=== PATIENT | female | born 1935 | race Caucasian/White ===

== ENCOUNTER 2016-07-09 23:52 | Inpatient (IN) ==
[2016-07-10] MEDS ORDERED: *HR* Promethazine 25 MG/ML VIAL ONE (02:04)
[2016-07-10] MEDS ORDERED: *HR* Promethazine 25 MG/ML VIAL IVP PRN (02:14)
[2016-07-10] MEDS ORDERED: Naloxone 0.4 MG/ML INJ IVP PRN (02:14)
[2016-07-10] MEDS ORDERED: *HR* Morphine 2 MG/ML SYRINGE IVP PRN (02:14)
--- NOTE | 2016-07-10 02:23 | Internal Med History&Physical ---
Date of Encounter: 07/10/16 Time of Encounter: 01:30 Assessment and Plan (1) A-fib Current visit: Yes Status: Acute Heart rate is well-controlled. Cardiac monitoring shows pacing rhythm with a heart rate 70. Will hold Eliquis for possible surgical intervention. (last dose was 07/09 morning). Qualifiers: Atrial fibrillation type: chronic Qualified Code(s): I48.2 - Chronic atrial fibrillation (2) SBO (small bowel obstruction) Current visit: No Status: Acute CT abdomen shows small bowel obstruction, patient still can pass gas. Surgical consult was informed. - Continue nothing by mouth, IV fluid to avoid dehydration. - Symptomatic and supportive treatment. - Closely monitoring considering patient's high age. - Surgical consult. (3) DVT prophylaxis Current visit: Yes Status: Acute Eliquis is on hold for possible surgical intervention. EPCD Internal Medicine - H&P: HPI Chief complaint: Abdominal pain Admitted From: Home Plans for Post Hospital Care: Home History of present illness: Ms. Das is a 81 year old female with history of A. fib on pacemaker and Eliquis presented to [place] emergency room for abdominal pain. Patient said the pain onset suddenly at 5 PM when she is eating. Pain is a cramping, 10 out of 10, patient has nausea and vomiting. Patient denies chest pain or shortness of breath. She has no fever. She had a bowel movement in the morning. She can pass gas. CT abdomen shows small bowel obstruction. Surgery on-call Dr. Perrin was counseled by [facility], instructed conservative treatment and he will see patient in a.m.. Patient transferred to [facility] for further management. Past Med Surg Social Fam HX - Past Medical History Medical history: arthritis, atrial fibrillation, hyperlipidemia, hypertension, other (Irritable bowel syndrome) Psychiatric history: depression - Past Surgical History Surgical History: cholecystectomy, hysterectomy - Social History Smoking Status: Never smoker Smokeless Tobacco Status: No Alcohol use: none Drug use: none Internal Medicine - H&P: Meds Apixaban [Eliquis] 2.5 mg PO BID 07/09/16 [History] Buprenorphine HCl [Belbuca] 150 mcg BC DAILY 07/09/16 [History] Furosemide [Lasix] 20 mg PO DAILY 07/09/16 [History] Ibguard 1 PO TID 07/09/16 [History] Potassium Chloride [Klor-Con M15] 1 PO BID 07/09/16 [History] RX: Amlodipine Besylate 1 mg PO 07/09/16 [History] RX: Carvedilol 3.125 mg PO BID 07/09/16 [History] RX: PARoxetine HCl [Paroxetine HCl] 10 mg PO 07/09/16 [History] Allergies No Known Allergies Allergy (Verified 03/03/16 14:13) All Systems PM: A 10-system review of systems was performed and is negative for pertinent findings except as documented above in the HPI. - Head Head exam: Present: atraumatic, normocephalic - Eye Eye exam: Present: PERRL, conjuntiva pink, sclera anicteric Pupils: Present: PERRL - Neck Neck exam general surgery: Present: supple, trachea midline. Absent: lymphadenopathy - Respiratory Respiratory exam: Present: CTAB. Absent: accessory muscle use, rales, rhonchi, wheezes - Cardiovascular Cardiovascular exam: Present: RRR, +S1, +S2. Absent: diastolic murmur, gallop, rubs, systolic murmur - GI/Abdominal GI/Abdominal exam: Present: normal bowel sounds, soft, tenderness (Tenderness on right upper quadrant without guarding or rebound), no peritoneal signs. Absent: distended - Extremities Exam Extremities exam: Present: warm, radial pulses palpable and symetrical. Absent : calf tenderness, cyanotic, pedal edema - Neurological Exam Neurological exam: Present: CN II-XII intact, oriented X3, no focal deficits. Absent: pronater drift, facial droop, speech deficit - Skin Skin exam: Present: dry, intact
[2016-07-10] MEDS ORDERED: Ondansetron 4 MG/2 ML VIAL IVP PRN (02:31)
[2016-07-10] MEDS: 0.9 % Sodium Chloride 1,000 ML IVC SCH ×2 (02:33→12:28)
[2016-07-10 06:53] LABS: INR 1.3; Prothrombin Time 13.8 Seconds (9.4-12.1)
[2016-07-10 07:01] LABS: Albumin 3.5 g/dL (3.5-5.0); Bilirubin,Total 0.7 mg/dL (0.2-1.2); Calcium 10.1 mg/dL (8.6-10.8); Globulin 3.5 g/dL (2.4-3.5); Potassium 3.4 mEq/L (3.5-4.5)
[2016-07-10 07:05] LABS: Basophils % 0.1 %; Hematocrit 46.6 % (35.3-44.9); Hemoglobin 15.3 g/dL (11.5-15.4); Immature Granulocytes % 0.3 % (0-4); Lymphocytes % 7.5 %; Mean Corpuscular HGB Conc 32.8 g/dL (31.6-35.5); Mean Corpuscular Volume 91.4 fL (83.0-100.0); Mean Platelet Volume 10.2 fL (9.4-12.4); Monocytes % 7.2 %; Platelet Count 313 K/mcL (140-400); Red Cell Distribution Width 13.3 % (11.5-14.5); Segmented Neutrophils % 84.9 %
[2016-07-10 07:08] LABS: Neutrophils # 11.6 K/mcL (1.6-8.9)
[2016-07-10] MEDS ORDERED: APIXABAN 2.5 MG TABLET PO SCH (09:00)
--- NOTE | 2016-07-10 16:44 | General Surg History&Physical ---
Date of Encounter: 07/10/16 Time of Encounter: 16:44 History of Present Illness HPI: Ms. Das is a 81 year old female Past Med Surg Social Fam HX - Past Medical History Medical history: arthritis, atrial fibrillation, hyperlipidemia, hypertension, other Psychiatric history: depression - Past Surgical History Surgical History: cholecystectomy, hysterectomy - Social History Smoking Status: Never smoker Smokeless Tobacco Status: No Alcohol use: none Drug use: none Medications and Allergies Amlodipine Besylate 5 mg PO DAILY 07/09/16 [History] Apixaban [Eliquis] 2.5 mg PO BID 07/09/16 [History] Buprenorphine HCl [Belbuca] 150 mcg BC DAILY 07/09/16 [History] Carvedilol 3.125 mg PO BID 07/09/16 [History] Furosemide [Lasix] 20 mg PO DAILY 07/09/16 [History] Ibguard 1 PO TID 07/09/16 [History] PARoxetine HCl [Paroxetine HCl] 10 mg PO BID 07/09/16 [History] BuPROPion XL (24 HR) [Wellbutrin XL] 150 mg PO DAILY 07/10/16 [History] Potassium Chloride 20 meq PO BID 07/10/16 [History] diazePAM [Valium] 5 mg PO DAILY PRN 07/10/16 [History] Allergies No Known Allergies Allergy (Verified 03/03/16 14:13) Review of Systems All systems PM: A 10-system review of systems was performed and is negative for pertinent findings except as documented above in the HPI. General Surgery Exam Initial Vital Signs Pulse Resp BP Pulse Ox 70 14 128/69 94 07/10/16 02:38 07/10/16 02:38 07/10/16 02:38 07/10/16 02:38 Results - Labs 07/10/16 06:11 07/10/16 06:11 Abnormal lab results WBC 13.6 K/mcL (4.3-11.1) H D 07/10/16 06:11 RBC 5.10 M/mcL (3.82-4.97) H 07/10/16 06:11 Hct 46.6 % (35.3-44.9) H 07/10/16 06:11 Neutrophils # 11.6 K/mcL (1.6-8.9) H 07/10/16 06:11 PT 13.8 Seconds (9.4-12.1) H 07/10/16 06:11 Potassium 3.4 mEq/L (3.5-4.5) L 07/10/16 06:11 Creatinine 1.35 mg/dL (0.57-1.11) H 07/10/16 06:11 Est GFR ( Amer) 45 (> 60) L 07/10/16 06:11 Est GFR (Non-Af Amer) 37 (> 60) L 07/10/16 06:11 Glucose 158 mg/dL (70-99) H 07/10/16 06:11 Albumin/Globulin Ratio 1.0 (1.1-2.2) L 07/10/16 06:11 Diabetes panel 07/10/16 Range/Units 06:11 Sodium 139 (136-145) mEq/L Potassium 3.4 L (3.5-4.5) mEq/L Chloride 105 (98-109) mEq/L Carbon Dioxide 24 (19-29) mEq/L BUN 20 (7-20) mg/dL Creatinine 1.35 H (0.57-1.11) mg/dL Glucose 158 H (70-99) mg/dL Calcium 10.1 (8.6-10.8) mg/dL AST 23 (5-34) Units/L ALT 18 (0-55) Units/L Alkaline Phosphatase 88 (38-126) Units/L Albumin 3.5 (3.5-5.0) g/dL Calcium panel 07/10/16 Range/Units 06:11 Calcium 10.1 (8.6-10.8) mg/dL Albumin 3.5 (3.5-5.0) g/dL Pituitary panel 07/10/16 Range/Units 06:11 Sodium 139 (136-145) mEq/L Potassium 3.4 L (3.5-4.5) mEq/L Chloride 105 (98-109) mEq/L Carbon Dioxide 24 (19-29) mEq/L BUN 20 (7-20) mg/dL Creatinine 1.35 H (0.57-1.11) mg/dL Glucose 158 H (70-99) mg/dL Calcium 10.1 (8.6-10.8) mg/dL Adrenal panel 07/10/16 Range/Units 06:11 Sodium 139 (136-145) mEq/L Potassium 3.4 L (3.5-4.5) mEq/L Chloride 105 (98-109) mEq/L Carbon Dioxide 24 (19-29) mEq/L BUN 20 (7-20) mg/dL Creatinine 1.35 H (0.57-1.11) mg/dL Glucose 158 H (70-99) mg/dL Calcium 10.1 (8.6-10.8) mg/dL Total Bilirubin 0.7 (0.2-1.2) mg/dL AST 23 (5-34) Units/L ALT 18 (0-55) Units/L Alkaline Phosphatase 88 (38-126) Units/L Albumin 3.5 (3.5-5.0) g/dL All other labs normal. - VTE Documentation of Mechanical Device: Intermittent pneumatic compression device
--- NOTE | 2016-07-10 19:13 | General Surgery Consult Note ---
<Juliette Linda - Last Filed: 07/10/16 19:58> Date of Encounter: 07/10/16 Time of Encounter: 19:11 Assessment and Plan (1) SBO (small bowel obstruction) Current Visit: Yes Status: Suspected Patient presented to [place] ED with sudden onset persistent abdominal pain and imaging consistent with closed loop small bowel obstruction. She was transferred to [facility] for further surgical evaluation and management. Small bowel follow-through demonstrates delayed transit time without bowel obstruction. On physical exam: Patient is pleasant and conversant , her abdomen is mildly tender to palpation bilaterally the left lower quadrant and the right lower quadrant as well as periumbilical region, no rebound, rigidity, guarding/peritoneal signs. Patient admits to "having gobs of gas " and stooling multiple times since her small bowel follow-through. Nonsurgical abdomen. Vitals stable. Afebrile. Plan to treat conservatively. CT scan of the abdomen and pelvis without oral or IV contrast 07/09/16 1. Findings are consistent with a closed loop small bowel obstruction within the lower mid abdomen/upper pelvis, possibly secondary to adhesions, an internal hernia, or volvulus. There is no evidence of pneumatosis, perforation , or free air. 2. Bilateral nonobstructing nephrolithiasis, without evidence of a ureteral calculus or hydronephrosis. 3. Stable hepatic and bilateral renal cysts. 4. Stable chronic left renal atrophy and left renal cortical scarring. 5. Patient status post cholecystectomy and hysterectomy. 6. Mild dependent opacities within the bilateral lower lobes, atelectasis favored over pneumonia. Chest X-Ray 07/10/16 07:56 IMPRESSION: Trace pleural effusions are suspected. Low lung volumes and minimal bibasilar atelectasis is suspected. Small Bowel X-Ray 07/10/16 10:09 IMPRESSION: 1. Multiple dilated loops of small bowel measuring up to 4.1 cm in diameter with mildly delayed transit time to the colon. Findings may represent ileus or partial small bowel obstruction. No evidence of complete bowel obstruction as contrast reaches the ascending colon within 3 hours. The findings were sent to the Radiology Results Communication [facility] at 2:40 pm on 07/10/2016to be communicated to a licensed caregiver. Plan: Conservative management per hospital team Advance diet as tolerated Supportive care and pain control IV fluids PPI therapy: Patoprazole 40 mg IVP daily Encourage activity There is no indication for surgical intervention at this time. Thank you for your consultation. Surgery will sign out. The assessment and plan as outlined above was discussed with the patient and/or family members who expressed understanding and agreement. All questions were answered. History of Present Illness Consult date: 07/10/16 Reason for consult: abdominal pain Requesting physician: Chris Hammer History of present illness: Ms. Limon is an 81-year-old female who is being evaluated for abdominal pain. Patient describes sudden onset severe cramping abdominal pain originating in the periumbilical region and radiating caudally bilaterally to the left lower quadrant and right lower quadrant at 10 out of 10 that occurred 15-20 minutes after consuming a pulled pork barbecue sandwich on Monday evening. Symptoms have been persistent since onset around 5 PM 3 days ago. Patient reports she had similar cramping symptoms in the past just prior to having her gallbladder removed. Associated symptoms include nausea and vomiting one time as food bolus recently consumed. Relevant history: Over the past year patient reports digestive problems described as pain that occurs just after eating approximately 10-20 minutes described as cramping abdominal pain in the periumbilical region at 6 out of 10 pain without radiation lasting 1-2 minutes before spontaneous resolution. Patient reports that her primary care doctor sent her to [place] to evaluated by a sharepoint administrator who diagnosed her with irritable bowel syndrome and bacterial overgrowth.(Dr. Anton and Dr Guanako Rivera II) patient reports that she has been taking the medication to "calm her bowel" for the past 3 months: Infrogram, sunfiber, miralax, IB guard. Last bowel movement prior to admission to the hospital was yesterday morning described as a regular bowel movement in consistency and color and caliber, however, patient states that she had significant difficulty stooling stating that it was hard for her to push out the stool itself although the stool was soft. Since she has been admitted to the hospital she has had multiple bowel movements and has passed "gobs of gas "during her stay. Patient denies: Hematemesis, hematochezia, melena, dysuria, pyuria, hematuria Fever, chills, chest pain, palpitations, shortness of breath. Surgical history: Cholecystectomy Hysterectomy, salpingectomy, oophorectomy Bladder lift Spinal fusion of L4-L5 Last EGD and colonoscopy 2015 06 polyps were removed as well as internal hemorrhoid Social history: Patient states that she has been very depressed over the last year and attributed her one year of digestive problems due to decreased appetite from her depression. Patient states that she is always constantly in a state of worry over things that she cannot change. She would like to establish a new primary care provider for further evaluation into her depression. She feels that her current medical therapy is inadequate as her depressive symptoms has worsened. Patients granddaughter Radha Pacr may be reached at [phone]. Medical history: Atrial fibrillation Pacemaker she is on her fourth one although she has had a pacemaker for 20 years now. Last interrogation: Interrogated daily via wireless Hypertension, depression, arthritis, restless legs Past Med Surg Social Fam HX - Past Medical History Medical history: arthritis, atrial fibrillation, hyperlipidemia, hypertension, other Psychiatric history: depression - Past Surgical History Surgical History: cholecystectomy, hysterectomy - Social History Smoking Status: Never smoker Smokeless Tobacco Status: No Alcohol use: none Drug use: none Medications and Allergies Amlodipine Besylate 5 mg PO DAILY 07/09/16 [History] Apixaban [Eliquis] 2.5 mg PO BID 07/09/16 [History] Buprenorphine HCl [Belbuca] 150 mcg BC DAILY 07/09/16 [History] Carvedilol 3.125 mg PO BID 07/09/16 [History] Furosemide [Lasix] 20 mg PO DAILY 07/09/16 [History] Ibguard 1 PO TID 07/09/16 [History] PARoxetine HCl [Paroxetine HCl] 10 mg PO BID 07/09/16 [History] BuPROPion XL (24 HR) [Wellbutrin XL] 150 mg PO DAILY 07/10/16 [History] Potassium Chloride 20 meq PO BID 07/10/16 [History] diazePAM [Valium] 5 mg PO DAILY PRN 07/10/16 [History] Allergies No Known Allergies Allergy (Verified 03/03/16 14:13) Review of Systems All systems PM: A 10-system review of systems was performed and is negative for pertinent findings except as documented above in the HPI. General Surgery Exam Initial Vital Signs Pulse Resp BP Pulse Ox 70 14 128/69 94 07/10/16 02:38 07/10/16 02:38 07/10/16 02:38 07/10/16 02:38 - General physical appearance well developed, well nourished, no distress, moderate pain - Eyes PERRL, normal ocular movement - ENT normal nares, normal mucosa, dry mucosa, atraumatic, normocephalic, CN 2-12 grossly intact - Neck trachea midline, no venous distension - Respiratory normal expansion, normal respiratory effort, clear to auscultation - Cardiovascular Cardiovascular exam: Present: RRR, murmurs (Mitral valve prolapse). Absent: JVD - Abdomen Abdomen general surgery: Present: bowel sounds present, soft, tender Abdominal Tenderness: Present: diffusely - Integumentary Integumentary general surgery: Present: warm and dry, no abnormal pigmentation. Absent: diaphoresis, rash - Neurologic Present: CN 2-12 grossly intact, normal coordination, normal sensation - Musculoskeletal Present: normal posture - Psychiatric Psychiatric general surgery: Present: A&Ox3, appropriate, speech is normal, tearful (Patient became tearful on discussing her depressive symptoms) Exam Initial Vital Signs Pulse Resp BP Pulse Ox 70 14 128/69 94 07/10/16 02:38 07/10/16 02:38 07/10/16 02:38 07/10/16 02:38 Results - Labs 07/10/16 06:11 07/10/16 06:11 Abnormal lab results WBC 13.6 K/mcL (4.3-11.1) H D 07/10/16 06:11 RBC 5.10 M/mcL (3.82-4.97) H 07/10/16 06:11 Hct 46.6 % (35.3-44.9) H 07/10/16 06:11 Neutrophils # 11.6 K/mcL (1.6-8.9) H 07/10/16 06:11 PT 13.8 Seconds (9.4-12.1) H 07/10/16 06:11 Potassium 3.4 mEq/L (3.5-4.5) L 07/10/16 06:11 Creatinine 1.35 mg/dL (0.57-1.11) H 07/10/16 06:11 Est GFR ( Amer) 45 (> 60) L 07/10/16 06:11 Est GFR (Non-Af Amer) 37 (> 60) L 07/10/16 06:11 Glucose 158 mg/dL (70-99) H 07/10/16 06:11 Albumin/Globulin Ratio 1.0 (1.1-2.2) L 07/10/16 06:11 Diabetes panel 07/10/16 Range/Units 06:11 Sodium 139 (136-145) mEq/L Potassium 3.4 L (3.5-4.5) mEq/L Chloride 105 (98-109) mEq/L Carbon Dioxide 24 (19-29) mEq/L BUN 20 (7-20) mg/dL Creatinine 1.35 H (0.57-1.11) mg/dL Glucose 158 H (70-99) mg/dL Calcium 10.1 (8.6-10.8) mg/dL AST 23 (5-34) Units/L ALT 18 (0-55) Units/L Alkaline Phosphatase 88 (38-126) Units/L Albumin 3.5 (3.5-5.0) g/dL Calcium panel 07/10/16 Range/Units 06:11 Calcium 10.1 (8.6-10.8) mg/dL Albumin 3.5 (3.5-5.0) g/dL Pituitary panel 07/10/16 Range/Units 06:11 Sodium 139 (136-145) mEq/L Potassium 3.4 L (3.5-4.5) mEq/L Chloride 105 (98-109) mEq/L Carbon Dioxide 24 (19-29) mEq/L BUN 20 (7-20) mg/dL Creatinine 1.35 H (0.57-1.11) mg/dL Glucose 158 H (70-99) mg/dL Calcium 10.1 (8.6-10.8) mg/dL Adrenal panel 07/10/16 Range/Units 06:11 Sodium 139 (136-145) mEq/L Potassium 3.4 L (3.5-4.5) mEq/L Chloride 105 (98-109) mEq/L Carbon Dioxide 24 (19-29) mEq/L BUN 20 (7-20) mg/dL Creatinine 1.35 H (0.57-1.11) mg/dL Glucose 158 H (70-99) mg/dL Calcium 10.1 (8.6-10.8) mg/dL Total Bilirubin 0.7 (0.2-1.2) mg/dL AST 23 (5-34) Units/L ALT 18 (0-55) Units/L Alkaline Phosphatase 88 (38-126) Units/L Albumin 3.5 (3.5-5.0) g/dL All other labs normal. - Imaging Chest x-ray: report reviewed, image reviewed Abdominal x-ray: report reviewed, image reviewed CT scan - abdomen: report reviewed, image reviewed CT scan - pelvis: report reviewed, image reviewed Consult Discharge Plan - Plan Referrals: Kailash Campbell MD [Primary Care Provider] - <Justo Perrin - Last Filed: 07/11/16 07:27> Date of Encounter: 07/10/16 Review of Systems All systems PM: A 10-system review of systems was performed and is negative for pertinent findings except as documented above in the HPI. General Surgery Exam Initial Vital Signs Pulse Resp BP Pulse Ox 70 14 128/69 94 07/10/16 02:38 07/10/16 02:38 07/10/16 02:38 07/10/16 02:38 Exam Initial Vital Signs Pulse Resp BP Pulse Ox 70 14 128/69 94 07/10/16 02:38 07/10/16 02:38 07/10/16 02:38 07/10/16 02:38 Results - Labs 07/10/16 06:11 07/10/16 06:11 Abnormal lab results WBC 13.6 K/mcL (4.3-11.1) H D 07/10/16 06:11 RBC 5.10 M/mcL (3.82-4.97) H 07/10/16 06:11 Hct 46.6 % (35.3-44.9) H 07/10/16 06:11 Neutrophils # 11.6 K/mcL (1.6-8.9) H 07/10/16 06:11 PT 13.8 Seconds (9.4-12.1) H 07/10/16 06:11 Potassium 3.4 mEq/L (3.5-4.5) L 07/10/16 06:11 Creatinine 1.35 mg/dL (0.57-1.11) H 07/10/16 06:11 Est GFR ( Amer) 45 (> 60) L 07/10/16 06:11 Est GFR (Non-Af Amer) 37 (> 60) L 07/10/16 06:11 Glucose 158 mg/dL (70-99) H 07/10/16 06:11 POC Glucose 120 (58-89) H 07/10/16 23:41 Albumin/Globulin Ratio 1.0 (1.1-2.2) L 07/10/16 06:11 All other labs normal. - Attending Attestation I examined this patient and my medical decision-making was reviewed with the MARINE CONSULTANT/PA/Advanced Practice Nurse/Resident Physician. I agree with the documented findings, disposition and treatment plan as described except to the extent set forth below. The patient is seen and evaluated. Her abdominal examination is completely negative. She does not have a nasogastric tube in and she is not vomiting. CAT scan suggests segmental dilatation of the small bowel that may be related to bowel obstruction. I ordered small bowel follow-through. Further recommendations will be based on radiologic findings Justo Perrin MD FACS
[2016-07-11 08:40] LABS: Basophils % 0.3 %; Eosinophils # 0.1 K/mcL (0.0-0.6); Eosinophils % 0.6 %; Hematocrit 39.6 % (35.3-44.9); Immature Granulocytes % 0.2 % (0-4); Lymphocytes # 1.5 K/mcL (0.6-4.6); Lymphocytes % 12.2 %; Mean Corpuscular HGB Conc 33.6 g/dL (31.6-35.5); Mean Corpuscular Hemoglobin 31.1 pg (28.0-33.3); Mean Corpuscular Volume 92.5 fL (83.0-100.0); Monocytes # 1.5 K/mcL (0.0-1.3); Monocytes % 12.4 %; Neutrophils # 9.1 K/mcL (1.6-8.9); Platelet Count 233 K/mcL (140-400); Red Blood Count 4.28 M/mcL (3.82-4.97); Red Cell Distribution Width 13.6 % (11.5-14.5); Segmented Neutrophils % 74.3 %
[2016-07-11 08:42] LABS: Hemoglobin 13.3 g/dL (11.5-15.4)
[2016-07-11 09:04] LABS: BUN/Creatinine Ratio 23 (6-26); Blood Urea Nitrogen 22 mg/dL (7-20); Calcium 8.8 mg/dL (8.6-10.8); Carbon Dioxide 29 mEq/L (19-29); Chloride 107 mEq/L (98-109); Glucose 96 mg/dL (70-99); Osmolality,Calculated 295 (280-300); Potassium 3.2 mEq/L (3.5-4.5); Sodium 141 mEq/L (136-145); eGFR For African Americans > 60 (> 60); eGFR For Non-African Americans 56 (> 60)
[2016-07-11] MEDS: 0.9 % Sodium Chloride 1,000 ML IVC SCH ×3 (12:30→21:18)
--- NOTE | 2016-07-11 14:32 | Internal Med Progress Note ---
Date of Encounter: 07/11/16 Time of Encounter: 14:25 - Assessment and plan (1) SBO (small bowel obstruction) Current Visit: Yes Status: Acute Assessment and plan: clinically improving appreciate surgery recommendation, There is no indication for surgical intervention at this time. start clears for now adn observe for any worsening abdominal pain or n/v. restart elliquis today and her other home meds if tolerates clear liquids, will advance diet gradually (2) A-fib Current Visit: Yes Status: Acute Assessment and plan: not in RVR Continue the beta morales and anticoagulation. Qualifiers: Atrial fibrillation type: chronic Qualified Code(s): I48.2 - Chronic atrial fibrillation - Subjective Interval history: Patient seen at the bedside, admitted for small bowel obstruction. Reports that the abdomen is still sore however she is passing gas, has not had any bowel movements yet. Denies any nausea or vomiting. Currently nothing by mouth. - Constitutional Vitals: Temp Pulse Resp BP Pulse Ox 98.0 F 70 18 143/78 91 07/11/16 08:16 07/11/16 08:16 07/11/16 08:16 07/11/16 08:16 07/11/16 08:25 General appearance: Present: A&O X 3, no acute distress Exam: - Head Head exam: Present: atraumatic, normocephalic - Eye Eye exam: Present: PERRL, conjuntiva pink, sclera anicteric Pupils: Present: PERRL - Neck Neck exam general surgery: Present: supple, trachea midline. Absent: lymphadenopathy - Respiratory Respiratory exam: Present: CTAB. Absent: accessory muscle use, rales, rhonchi, wheezes - Cardiovascular Cardiovascular exam: Present: RRR, +S1, +S2. Absent: diastolic murmur, gallop, rubs, systolic murmur - GI/Abdominal GI/Abdominal exam: Present: normal bowel sounds, soft, tenderness (Tenderness on right upper quadrant without guarding or rebound), no peritoneal signs. Absent: distended - Extremities Exam Extremities exam: Present: warm, radial pulses palpable and symetrical. Absent : calf tenderness, cyanotic, pedal edema - Neurological Exam Neurological exam: Present: CN II-XII intact, oriented X3, no focal deficits. Absent: pronater drift, facial droop, speech deficit - Skin Skin exam: Present: dry, intact Internal Medicine: Result - Labs CBC & Chem 7: 07/11/16 08:25 07/11/16 08:25 Labs: Short CBC 07/11/16 Range/Units 08:25 WBC 12.3 H (4.3-11.1) K/mcL Hgb 13.3 D (11.5-15.4) g/dL Hct 39.6 (35.3-44.9) % Plt Count 233 (140-400) K/mcL Neutrophils # 9.1 H (1.6-8.9) K/mcL BMP 07/11/16 08:25 Sodium 141 Potassium 3.2 L Chloride 107 Carbon Dioxide 29 BUN 22 H Creatinine 0.95 Glucose 96 Calcium 8.8 - ABG Interpretation ABG results: PT/INR, D-dimer PT 13.8 Seconds (9.4-12.1) H 07/10/16 06:11 - Impressions Impressions Small Bowel X-Ray 07/10/16 10:09 IMPRESSION: 1. Multiple dilated loops of small bowel measuring up to 4.1 cm in diameter with mildly delayed transit time to the colon. Findings may represent ileus or partial small bowel obstruction. No evidence of complete bowel obstruction as contrast reaches the ascending colon within 3 hours. The findings were sent to the Radiology Results Communication Center at 2:40 pm on 07/10/2016to be communicated to a licensed caregiver. D/ / Merry Amaral MD / Merry Amaral MD Interpreting Provider: Merry Amaral MD - VTE Documentation of Mechanical Device: Intermittent pneumatic compression device Consult Discharge Plan - Plan Referrals: Kailash Campbell MD [Primary Care Provider] -
[2016-07-11] MEDS: BuPROPion XL (24 HR) 150 MG TABLET PO SCH (15:20)
[2016-07-11] MEDS: APIXABAN 5 MG TABLET PO SCH ×2 (15:20→21:16)
[2016-07-12] MEDS: BuPROPion XL (24 HR) 150 MG TABLET PO SCH (07:54)
[2016-07-12] MEDS: APIXABAN 5 MG TABLET PO SCH ×2 (07:55→20:27)
[2016-07-12] MEDS: amLODIPine 5 MG TABLET PO SCH (07:56)
[2016-07-12 08:13] LABS: Basophils % 0.5 %; Eosinophils # 0.2 K/mcL (0.0-0.6); Eosinophils % 1.8 %; Hematocrit 35.2 % (35.3-44.9); Immature Granulocytes % 0.2 % (0-4); Lymphocytes # 1.4 K/mcL (0.6-4.6); Lymphocytes % 16.2 %; Mean Corpuscular Hemoglobin 30.5 pg (28.0-33.3); Mean Corpuscular Volume 92.6 fL (83.0-100.0); Mean Platelet Volume 10.1 fL (9.4-12.4); Monocytes # 0.9 K/mcL (0.0-1.3); Monocytes % 10.4 %; Neutrophils # 6.2 K/mcL (1.6-8.9); Platelet Count 221 K/mcL (140-400); Red Cell Distribution Width 13.4 % (11.5-14.5); Segmented Neutrophils % 70.9 %
[2016-07-12 08:14] LABS: Hemoglobin 11.6 g/dL (11.5-15.4)
[2016-07-12 08:31] LABS: BUN/Creatinine Ratio 14 (6-26); Blood Urea Nitrogen 12 mg/dL (7-20); Calcium 8.8 mg/dL (8.6-10.8); Carbon Dioxide 29 mEq/L (19-29); Chloride 107 mEq/L (98-109); Glucose 87 mg/dL (70-99); Osmolality,Calculated 289 (280-300); Potassium 3.3 mEq/L (3.5-4.5); Sodium 140 mEq/L (136-145); eGFR For African Americans > 60 (> 60); eGFR For Non-African Americans > 60 (> 60)
--- NOTE | 2016-07-12 13:33 | Internal Med Progress Note ---
Date of Encounter: 07/12/16 Time of Encounter: 13:30 - Assessment and plan (1) SBO (small bowel obstruction) Current Visit: Yes Status: Acute Assessment and plan: clinically improving appreciate surgery recommendation, There is no indication for surgical intervention at this time. on clears with no worsening abdominal pain or n/v. restarted elliquis. if tolerates clear liquids, will advance diet gradually (2) A-fib Current Visit: Yes Status: Acute Assessment and plan: not in RVR Continue the beta morales and anticoagulation. Qualifiers: Atrial fibrillation type: chronic Qualified Code(s): I48.2 - Chronic atrial fibrillation - Subjective Interval history: Patient seen at the bedside, admitted for small bowel obstruction. Reports that the abdomen is mildly sore, has bowel movements and is tolerating clear liquid diet. Denies any nausea or vomiting. - Constitutional Vitals: Temp Pulse Resp BP Pulse Ox 98.3 F 71 18 106/58 90 07/12/16 12:33 07/12/16 12:33 07/12/16 12:33 07/12/16 12:33 07/12/16 12:33 General appearance: Present: A&O X 3, no acute distress Exam: - Head Head exam: Present: atraumatic, normocephalic - Eye Eye exam: Present: PERRL, conjuntiva pink, sclera anicteric Pupils: Present: PERRL - Neck Neck exam general surgery: Present: supple, trachea midline. Absent: lymphadenopathy - Respiratory Respiratory exam: Present: CTAB. Absent: accessory muscle use, rales, rhonchi, wheezes - Cardiovascular Cardiovascular exam: Present: RRR, +S1, +S2. Absent: diastolic murmur, gallop, rubs, systolic murmur - GI/Abdominal GI/Abdominal exam: Present: normal bowel sounds, soft, non tender, no peritoneal signs. Absent: distended - Extremities Exam Extremities exam: Present: warm, radial pulses palpable and symetrical. Absent : calf tenderness, cyanotic, pedal edema - Neurological Exam Neurological exam: Present: CN II-XII intact, oriented X3, no focal deficits. Absent: pronater drift, facial droop, speech deficit - Skin Skin exam: Present: dry, intact Internal Medicine: Result - Labs CBC & Chem 7: 07/12/16 08:02 07/12/16 08:02 Labs: Short CBC 07/12/16 Range/Units 08:02 WBC 8.8 (4.3-11.1) K/mcL Hgb 11.6 D (11.5-15.4) g/dL Hct 35.2 L (35.3-44.9) % Plt Count 221 (140-400) K/mcL Neutrophils # 6.2 (1.6-8.9) K/mcL BMP 07/12/16 08:02 Sodium 140 Potassium 3.3 L Chloride 107 Carbon Dioxide 29 BUN 12 D Creatinine 0.83 Glucose 87 Calcium 8.8 - ABG Interpretation ABG results: PT/INR, D-dimer PT 13.8 Seconds (9.4-12.1) H 07/10/16 06:11 - VTE Documentation of Mechanical Device: Intermittent pneumatic compression device Consult Discharge Plan - Plan Referrals: Kailash Campbell MD [Primary Care Provider] -
[2016-07-12] MEDS: 0.9 % Sodium Chloride 1,000 ML IVC SCH ×2 (14:56→20:30)
[2016-07-13] MEDS: 0.9 % Sodium Chloride 1,000 ML IVC SCH (09:13)
[2016-07-13] MEDS: amLODIPine 5 MG TABLET PO SCH (09:43)
[2016-07-13] MEDS: APIXABAN 5 MG TABLET PO SCH (09:44)
[2016-07-13] MEDS: BuPROPion XL (24 HR) 150 MG TABLET PO SCH (09:44)
[2016-07-13 10:25] VITALS: BP 138/76
--- NOTE | 2016-07-13 10:29 | Discharge Summary ---
Date of Encounter: 07/13/16 Time of Encounter: 10:28 - Discharge Diagnosis (1) SBO (small bowel obstruction) Priority: Primary Status: Acute (2) A-fib Priority: Secondary Status: Acute Qualifiers: Atrial fibrillation type: chronic Qualified Code(s): I48.2 - Chronic atrial fibrillation - Discharge Medications Home Medications: Amlodipine Besylate 5 mg PO DAILY 07/09/16 [History] Apixaban [Eliquis] 2.5 mg PO BID 07/09/16 [History] Buprenorphine HCl [Belbuca] 150 mcg BC DAILY 07/09/16 [History] Carvedilol 3.125 mg PO BID 07/09/16 [History] Furosemide [Lasix] 20 mg PO DAILY 07/09/16 [History] Ibguard 1 PO TID 07/09/16 [History] PARoxetine HCl [Paroxetine HCl] 10 mg PO BID 07/09/16 [History] BuPROPion XL (24 HR) [Wellbutrin Xl] 150 mg PO DAILY 07/10/16 [History] Potassium Chloride 20 meq PO BID 07/10/16 [History] diazePAM [Valium] 5 mg PO DAILY PRN 07/10/16 [History] Allergies/Adverse Reactions: Allergies No Known Allergies Allergy (Verified 03/03/16 14:13) Date of admission: 07/10/16 02:14 Primary care physician: Kailash Campbell MD Consults: 07/10/16 02:20 Consult to Surgery [CONS] Routine Consulting Provider: [facility] Reason for Consult: SBO, Dr Perrin was called by [facility] Call Completed: Yes Discharging clinician: Itzel Bello Anticipated date of discharge: 07/13/16 - Patient Status Disposition: Home, Self-Care Condition: Fair Functional capacity at discharge: independent ambulation Overall status at discharge: patient is back to baseline - Discharge Instructions Instructions: Bowel Obstruction (DC) Follow Up With: Ramu Meng DO [Partnered Physician] - 07/20/16 1:45 pm Additional Instructions: Follow-up appointments: If there is not an appointment listed below, please call your physician and schedule a follow-up appointment. If you have congestive heart failure and your symptoms return, make an appointment with your physician. Medication List: Carry an up to date list of medications you are taking at all time. We have given you an updated medication list including any new medications that you have been prescribed. Please provide that list to your primary provider Symptoms: If your condition changes or you experience any of the following symptoms, notify your physician immediately: Unusual or worsening pain, fever, persistent nausea and vomiting, bleeding, increase in swelling (especially in your legs), sudden weight gain, extreme dizziness, chest pain, increased drainage or redness from a wound or incision. Go to the emergency department if you experience a problem with breathing. Weights: If you have a history of swelling or shortness of breath, weigh yourself daily and notify your physician if you have a weight gain of two or more pounds in one day or 5 or more pounds in a week. If you experience any of the warning signs for stroke: Sudden numbness or weakness of the face, arm or leg; especially on one side of the body, sudden confusion, trouble speaking or understanding, sudden trouble seeing in one or both eyes, sudden trouble walking, dizziness, loss of balance or coordination, sudden sever headache with no cause; Call 911 or go to the emergency room. Stroke is a medical emergency. Some risk factors for stroke: Age, cigarette smoking, diabetes, excessive alcohol consumption, family history , high blood pressure, overweight, physical inactivity, prior stroke, heart attack, diagnosis of carotid artery stenosis or other artery disease. If you smoke, STOP: Smoking or tobacco use significantly increases your risk of heart and lung disease. Your chance of disease greatly increases if you continue to smoke. For more information, call the [place] tobacco quit line for smoking cessation QUIT-NOW ( ) - Diet and Activity Activity: resume usual activities as tolerated Diet: other (soft diet for 1 week) Interval History: Patient presented to [facility] with sudden onset persistent abdominal pain and imaging consistent with closed loop small bowel obstruction. She was transferred to [facility] for further surgical evaluation and management. Small bowel follow-through demonstrates delayed transit time without bowel obstruction. On physical exam: Patient is pleasant and conversant , her abdomen is mildly tender to palpation bilaterally the left lower quadrant and the right lower quadrant as well as periumbilical region, no rebound, rigidity, guarding/peritoneal signs. Patient admits to "having gobs of gas " and stooling multiple times since her small bowel follow-through. Nonsurgical abdomen. Vitals stable. Afebrile. CT scan of the abdomen and pelvis without oral or IV contrast 07/09/16 1. Findings are consistent with a closed loop small bowel obstruction within the lower mid abdomen/upper pelvis, possibly secondary to adhesions, an internal hernia, or volvulus. There is no evidence of pneumatosis, perforation , or free air. 2. Bilateral nonobstructing nephrolithiasis, without evidence of a ureteral calculus or hydronephrosis. 3. Stable hepatic and bilateral renal cysts. 4. Stable chronic left renal atrophy and left renal cortical scarring. 5. Patient status post cholecystectomy and hysterectomy. 6. Mild dependent opacities within the bilateral lower lobes, atelectasis favored over pneumonia. Chest X-Ray 07/10/16 07:56 IMPRESSION: Trace pleural effusions are suspected. Low lung volumes and minimal bibasilar atelectasis is suspected. Small Bowel X-Ray 07/10/16 10:09 IMPRESSION: 1. Multiple dilated loops of small bowel measuring up to 4.1 cm in diameter with mildly delayed transit time to the colon. Findings may represent ileus or partial small bowel obstruction. No evidence of complete bowel obstruction as contrast reaches the ascending colon within 3 hours. The findings were sent to the [facility] at 2:40 pm on 07/10/2016to be communicated to a licensed caregiver. Patient treated conservatively with IV fluids, bowel rest. Surgery was consulted and recommended the same. She improved clinically with resolution of pain, tolerated diet well and at the time of discharge remained stable. She is being discharged today in stable condition to follow up with her PCP. Hospital course: Ms. Das is a 81 year old female - Time Spent with Patient Total time spent providing and/or coordinating discharge services: - Constitutional Vitals: Temp Pulse Resp BP Pulse Ox 97.9 F 68 14 138/76 92 07/13/16 10:18 07/13/16 10:18 07/13/16 10:18 07/13/16 10:18 07/13/16 10:18 General appearance: Present: A&O X 3, no acute distress Exam: - Head Head exam: Present: atraumatic, normocephalic - Eye Eye exam: Present: PERRL, conjuntiva pink, sclera anicteric Pupils: Present: PERRL - Neck Neck exam general surgery: Present: supple, trachea midline. Absent: lymphadenopathy - Respiratory Respiratory exam: Present: CTAB. Absent: accessory muscle use, rales, rhonchi, wheezes - Cardiovascular Cardiovascular exam: Present: RRR, +S1, +S2. Absent: diastolic murmur, gallop, rubs, systolic murmur - GI/Abdominal GI/Abdominal exam: Present: normal bowel sounds, soft, nontender, no peritoneal signs. Absent: distended - Extremities Exam Extremities exam: Present: warm, radial pulses palpable and symetrical. Absent : calf tenderness, cyanotic, pedal edema - Neurological Exam Neurological exam: Present: CN II-XII intact, oriented X3, no focal deficits. Absent: pronater drift, facial droop, speech deficit - Skin Skin exam: Present: dry, intact - VTE Documentation of Mechanical Device: Intermittent pneumatic compression device
== END 2016-07-13 13:38 | disposition home or self-care (01) | DRG 390 ==
LOC: 3ANU
PROVIDERS: ADMIT Internal Medicine; ATTEND Internal Medicine Endocrinology, Diabetes & Metabolism

== ENCOUNTER 2021-01-05 21:55 | Observation (INO) ==
[2021-01-05] MEDS ORDERED: Isovue-370 500 ML BOTTLE IVP ONE (22:04)
[2021-01-05 22:13] LABS: Hematocrit 44.5 % (35.3-44.9); Hemoglobin 14.8 g/dL (11.5-15.4); Mean Corpuscular HGB Conc 33.3 g/dL (31.6-35.5); Mean Corpuscular Volume 90.3 fL (83.0-100.0); Mean Platelet Volume 9.9 fL (9.4-12.4); Platelet Count 283 K/mcL (140-400); Red Blood Count 4.93 M/mcL (3.82-4.97); Red Cell Distribution Width 13.3 % (11.5-14.5); White Blood Count 5.2 K/mcL (4.3-11.1)
[2021-01-05 22:22] LABS: INR 1.3; Prothrombin Time 14.9 Seconds (9.4-12.1)
[2021-01-05 22:25] LABS: Activated Partial Thrombo Time 40.4 Seconds (26.0-36.0)
[2021-01-05 22:35] LABS: Calcium 10.4 mg/dL (8.6-10.3); Potassium 3.7 mEq/L (3.5-5.1)
[2021-01-05 22:39] LABS: Troponin I 0.21 ng/mL (< 0.04)
[2021-01-05 23:03] LABS: Bacteria,Urine Few per hpf (None-Few); Bilirubin,Urine Negative (Negative); Blood,Urine Negative (Negative); Clarity,Urine Clear (Clear); Color,Urine Colorless (Yellow); Glucose,Urine (UA) Normal (Normal); Ketones,Urine Negative (Negative); Leukocyte Esterase,Urine Trace (Negative); Nitrite,Urine Negative (Negative); Protein,Urine Trace mg/dL (Neg-Trace); RBC,Urine 0-3 per hpf (0-3); Specific Gravity,Urine 1.017 (1.010-1.025); Squamous Epithelial Cell,Urine Few per hpf (None-Few); Urobilinogen,Urine Normal (Normal); WBC,Urine 0-3 per hpf (0-3)
[2021-01-06] MEDS ORDERED: clonazePAM 0.5 MG TABLET PO PRN (09:11)
[2021-01-06] MEDS ORDERED: *HR* HYDROcodone/Acet 5/325 mg TABLET PO PRN (09:11)
[2021-01-06 09:37] VITALS: O2SAT 93
[2021-01-06] MEDS ORDERED: Acetaminophen 325 MG TABLET PO PRN (09:46)
[2021-01-06] MEDS ORDERED: Ondansetron 4 MG/2 ML VIAL IVP PRN (09:46)
[2021-01-06] MEDS ORDERED: Naloxone 0.4 MG/ML INJ IVP PRN (09:46)
[2021-01-06 15:20] VITALS: PULSE 70; TEMP 98.4
[2021-01-06] MEDS ORDERED: carvediloL 6.25 MG TABLET PO SCH (17:00)
[2021-01-06 17:51] VITALS: BP 156/75
[2021-01-07] MEDS ORDERED: amLODIPine 5 MG TABLET PO SCH (09:00)
== END 2021-01-06 18:30 | disposition left against medical advice (07) ==
LOC: 3NENU 21:55 → EMEROOARM 21:55 → 3NENU 01-06 09:15
PROVIDERS: ADMIT Pharmacist; ATTEND Pharmacist